=== PATIENT | male | born 1970 | race Caucasian/White ===

== ENCOUNTER 2020-04-04 05:45 | Day surgery (SDC) | payer OTHER ==
[~2020-04-04] VITALS: Ht 175.3 cm; Wt 86.2 kg
--- OUTSIDE RECORDS SUMMARY | ~2020-04-04 | XMS | Encounter Summary ---
Demographics + + + | Address | [address] | | | [place] [address] | + + + | Home Phone | | + + + | Preferred Language | Unknown | + + + | Marital Status | | + + + | Methodist Affiliation | Unknown | + + + | Race | White | + + + | Ethnic Group | Not or | + + + Author + + + | Organization | Unknown | + + + | Address | Unknown | + + + | Phone | Unavailable | + + + Support + + +---------+ + | Name | Relationship | Address | Phone | + + +---------+ + | Marco Bhat | ECON | Unknown | | + + +---------+ + Care Team Providers + +------+ + | Care Garnisher Name | Role | Phone | + +------+ + PCP | Unavailable | + +------+ + Encounter Details +--------+ + + + + | Date | Type | Department | Care Team | Description | +--------+ + + + + | 07/17/ | H&P-Transcr | | Physical, History | Hstry & Physical | | 2001 | ibed | | & | | +--------+ + + + + Social History + +-------+ +--------+------+ | Tobacco Use | Types | Packs/Day | Years | Date | | | | | Used | | + +-------+ +--------+------+ | Never Assessed | | | | | + +-------+ +--------+------+ + + + | Sex Assigned at | Date Recorded | | | | + + + | Not on file | | + + + + + + + | Job Start Date | Occupation | Industry | + + + + | Not on file | Not on file | Not on file | + + + + + + + + | Travel History | Travel Start | Travel End | + + + + + + | No recent travel history available. | + + documented as of this encounter Plan of Treatment Not on filedocumented as of this encounter Visit Diagnoses Not on filedocumented in this encounter"
--- OUTSIDE RECORDS SUMMARY | ~2020-04-04 | XMS | Encounter Summary ---
Demographics + + + | Address | [address] | | | [place] [address] | + + + | Home Phone | | + + + | Preferred Language | Unknown | + + + | Marital Status | | + + + | Orthodoxy Affiliation | Unknown | + + + | Race | White | + + + | Ethnic Group | Not or | + + + Author + + + | Author | [facility] | + + + | Organization | [facility] | + + + | Address | Unknown | + + + | Phone | Unavailable | + + + Support + + +---------+ + | Name | Relationship | Address | Phone | + + +---------+ + | Marco Bhat | ECON | Unknown | | + + +---------+ + Care Team Providers + +------+ + | Care Carpet Cleaner Name | Role | Phone | + +------+ + PCP | Unavailable | + +------+ + Encounter Details +--------+ + + + + | Date | Type | Department | Care Team | Description | +--------+ + + + + | 11/09/ | Office | [facility] | Note, Outpatient | Progress Note | | 2001 | Visit-Trans | MEDICINE | Clinic | | | | cribed | | | | +--------+ + + + + [...] + + documented as of this encounter Progress Notes Interface, Breakfast Manager In - 07/23/2006 1:04 AM PDTCLINIC DATE: 11/09/2001 NEUROSURGERY CLINIC Mr. Bhat returns to the clinic today about 3 months following his L2 compression fracture July 20, 2001. He has essentially no complaints at this time and continues to wear his brace. Lumbar x-ray showed no progressive kyphosis or compression of L2. He still maintains reasonably good alignment and no angulation. At this point, he is doing well, and we will discontinue the brace. We will have him return to our clinic on a p.r.n. basis. Cailin Ramirez M.D. CECILIA / EVA [id number] / [id number] / [id number] / C: 11/11/2001 dlg documented in this encounter Plan of Treatment Not on filedocumented as of this encounter Visit Diagnoses Not on filedocumented in this encounter"
--- OUTSIDE RECORDS SUMMARY | ~2020-04-04 | XMS | Encounter Summary ---
Demographics + + + | Address | [address] | | | [place] [address] | + + + | Home Phone | | + + + | Preferred Language | Unknown | + + + | Marital Status | | + + + | Presybeterian Affiliation | Unknown | + + + [...] | + + +---------+ + | Marco Horn | ECON | Unknown | | + + +---------+ + Care Team Providers + +------+ + | Care Calender Wind Up Helper Name | Role | Phone | + +------+ + PCP | Unavailable | + +------+ + Encounter Details +--------+ + + + + | Date | Type | Department | Care Team | Description | +--------+ + + + + | 09/14/ | Transcribed | | Dictation, Other | Transcribed | | 2001 | | | | | +--------+ + + [...] as of this encounter Progress Notes Interface, Stretch Press Operator In - 08/04/2006 3:07 AM [place] [facility] [place] [address] [place] [address] or September 14, 2001 RE: MARCELLO HORN MR #: [id number] The patient returns now 7 weeks following a fall in which he had a L2 burst fracture. He has been in a TLSO brace since that time. Comparison of his films to his injury date showed no evidence of any increased angulation or compression of L2. He seems to be healing well in situ. His examination shows no evidence of any weakness or numbness in the lower extremities. At this point, he is 7 weeks following L2 burst fracture and doing well on the TLSO brace. We are going to see him back in 1 month and may consider taking the brace off at that time. Sincerely, Cailin Ramirez M.D. CECILIA / EVA [id number] / [id number] / [id number] / [id number] signed by Interface, Stretch Press Operator In at 08/04/2006 3:07 AM PDTdoc umented in this encounter Plan of Treatment Not on filedocumented as of this encounter Visit Diagnoses Not on filedocumented in this encounter"
--- OUTSIDE RECORDS SUMMARY | ~2020-04-04 | XMS | Clinical Summary ---
Demographics + + + | Address | [address] | | | [place] [address] | + + + | Home Phone | | + + + | Preferred Language | Unknown | + + + | Marital Status | | + + + | Restorationist Affiliation | Unknown | + + + [...] Team Providers + +------+ + | Care Computational Mathematician Name | Role | Phone | + +------+ + PCP | Unavailable | + +------+ + Source Comments [place] is fully live on both [facility] Ambulatory and [facility] InPatient.[facility] Allergies Not on File Medications Not on [...] recent travel history available. | + + Last Filed Vital Signs Not on file Plan of Treatment + + + + + | Health Maintenance | Due Date | Last Done | Comments | + + + + + | Influenza (Flu) | | | | | vaccination (#1) | 9 | | | + + + + + | Pneumococcal | Aged Out | | No longer eligible | | vaccination | | | based on patient's | | | | | age to complete this | | | | | topic | + + + + + Results Not on filefrom Last 3 Months"
--- OUTSIDE RECORDS SUMMARY | ~2020-04-04 | XMS | Encounter Summary ---
Demographics + + + | Address | [address] | | | [place] [address] | + + + | Home Phone | | + + + | Preferred Language | Unknown | + + + | Marital Status | | + + + | Baptist Affiliation | Unknown | + + + | Race | White | + + + | Ethnic Group | Not or | + + + Author + + + | Author | [facility] | + + + | Organization | [facility] | + + + | Address | Unknown | + + + | Phone | Unavailable | + + + Support + + +---------+ + | Name | Relationship | Address | Phone | + + +---------+ + | Marco Bhat | ECON | Unknown | | + + +---------+ + Care Team Providers + +------+ + | Care Winding Machine Operator Name | Role | Phone | + +------+ + PCP | Unavailable | + +------+ + Encounter Details +--------+ + + + + | Date | Type | Department | Care Team | Description | +--------+ + + + + | 08/05/ | Results | Neurosurgery 3250 | Cailin Ramirez MD | | | 2000 | Only | [facility] | [address] | | | | | [address] Mailcode:OP[address] | [place], [place] | | | | | [place] | [address] | | | | | [place], [place] | [phone] | | | | | [address] | | | | | | [phone] | | | +--------+ + + + [...] + + | SPINE | Radiologist 1: SHIRA | | | | | THORACOLUMB | Jimenez JORGENSEN-Radiologist | | | | | AR 2 VIEWS | 2: JOSLYN SILVA | | | | | | JimenezAP AND LATERAL VIEWS | | | | | | OF THE LUMBAR SPINE: | | | | | | 09/14/2001 | | | | | | Dictated: 09/15/2001 | | | | | | COMPARISON: | | | | | | 08/05/2001. FINDINGS: | | | | | | This study is | | | | | | performed in [employer]. | | | | | | Again [...] | | + +---------+ + + | [facility] DEPARTMENT OF | | | | [...] | | | AR 2 VIEWS | M.DPramodTHORACOLUMBAR SPINE | | | | | | [...] | | + +---------+ + + | [facility] DEPARTMENT OF | | | | | RADIOLOGY | | | | + +---------+ + + documented in this encounter Visit Diagnoses Not on filedocumented in this encounter"
--- OUTSIDE RECORDS SUMMARY | ~2020-04-04 | XMS | Encounter Summary ---
Demographics + + + | Address | [address] | | | [place] [address] | + + + | Home Phone | | + + + | Preferred Language | Unknown | + + + | Marital Status | | + + + | Adventist Affiliation | Unknown | + + + | Race | White | + + + | Ethnic Group | Not or | + + + Author + + + | Author | [facility] | + + + | Organization | [facility] | + + + | Address | Unknown | + + + | Phone | Unavailable | + + + Support + + +---------+ + | Name | Relationship | Address | Phone | + + +---------+ + | Marco Bhat | ECON | Unknown | | + + +---------+ + Care Team Providers + +------+ + | Care Network Programmer Name | Role | Phone | + +------+ + PCP | Unavailable | + +------+ + Encounter Details +--------+ + + + + | Date | Type | Department | Care Team | Description | +--------+ + + + + | 11/09/ | Results | Neurosurgery 3250 | Cailin Ramirez MD | | | 2001 | Only | [facility] | [address] | | | | | [address] Mailcode:OP[address] | [place], [place] | | | | | [place] | [address] | | | | | [place], [place] | [phone] | | | | | [address] | | | | | | [phone] | | | +--------+ + + + [...] + | SPINE, LUMBOSACRAL, | Routin | 11/09/2001 | | Results for this | | 2 VIEWS | e | 2:52 PM | | procedure are in the | | | | PST | | results section. | + +--------+ + + + documented in this encounter Results SPINE, LUMBOSACRAL, 2 VIEWS (11/09/2001 2:52 PM PST) + + + + + + | Component | Value | Ref Range | Performed | Pathologist | | | | | At | Signature | + + + + + + | SPINE, | Radiologist 1: | | | | | LUMBOSACRAL | ENZO GIRALOD, | | | | | , 2 VIEWS | M.D.-Radiologist 2: | | | | | | ENZO GIRALDO, | | | | | | M.D.AP AND LATERAL | | | | | | LUMBAR SPINE: | | | | | | 11/09/2001 Dictated | | | | | | 11/09/2001 COMPARISON: | | | | | | 09/14/2001. FINDINGS: | | | | | | Examination is | | | | | | performed upright in a | | | | | | brace. As | | | | | | notedpreviously there is | | | | | | severely comminuted | | | | | | compression deformity of | | | | | | L1with an approximately | | | | | | 60% loss of anterior | | | | | | vertebral body | | | | | | height.There is | | | | | | increased sclerosis of | | | | | | L1 indicating interval | | | | | | radiographichealing and | | | | | | there has been no | | | | | | further loss of height. | | | | | | Minimalretrolisthesis | | | | | | of L1 and L2 is | | | | | | unchanged from the prior | | | | | | radiograph.The | | | | | | remaining alignment of | | | | | | the lumbar spine is | | | | | | anatomic. | | | | | | Remainingvertebral | | | | | | body heights and | | | | | | intervertebral disc | | | | | | spaces are | | | | | | maintained.The pedicles | | | | | | and neural arches are | | | | | | intact. AP alignment | | | | | | is anatomic. | | | | | | IMPRESSION: Healing | | | | | | anterior wedge | | | | | | compression deformity of | | | | | | L1, minimal | | | | | | L1-2retrolisthesis and | | | | | | no interval change from | | | | | | the prior radiograph. | | | | | | END OF IMPRESSION: | | | | + + + + + + + + | Specimen | + + | | + + + +---------+ + + | Performing | Address | City[facility] | Phone Number | | Organization | | | | + +---------+ + + | [facility] DEPARTMENT | | | | | RADIOLOGY | | | | + +---------+ + + documented in this encounter Visit Diagnoses Not on filedocumented in this encounter"
--- OUTSIDE RECORDS SUMMARY | ~2020-04-04 | XMS | Encounter Summary ---
Demographics + + + | Address | [address] | | | [place] [address] | + + + | Home Phone | | + + + | Preferred Language | Unknown | + + + | Marital Status | | + + + | Yazidism Affiliation | Unknown | + + + | Race | White | + + + | Ethnic Group | Not or | + + + Author + + + | Author | [facility] | + + + | Organization | [facility] | + + + | Address | Unknown | + + + | Phone | Unavailable | + + + Support + + +---------+ + | Name | Relationship | Address | Phone | + + +---------+ + | Marco Bhat | ECON | Unknown | | + + +---------+ + Care Team Providers + +------+ + | Care Production Trainer Name | Role | Phone | + +------+ + PCP | Unavailable | + +------+ + Encounter Details +--------+ + + + + | Date | Type | Department | Care Team | Description | +--------+ + + + + | 08/05/ | Office | [facility] | Note, Outpatient | Progress Note | | 2000 | Visit-Trans | MEDICINE | Clinic | [...] as of this encounter Progress Notes Interface, Grease Refiner Operator In - 08/09/2006 1:12 AM PDTCLINIC DATE: 08/05/2001 SUBJECTIVE: Mr. Bhat returns today, now approximately 2 weeks following a fall with secondary L2 burst compression fracture. He has been in a TLSO since that time and radiography today shows good alignment of the vertebra without evidence of any angulation at the L2 level. He has improved pain and is taking only ibuprofen 800 mg t.i.d. at present. OBJECTIVE: Examination today remains unremarkable. PLAN: We will see him back in 1 month for followup. I did spend considerable time today filling out his disability paperwork. Cailin Ramirez M.D. CECILIA / EVA [id number] / [id number] / [id number] / [id number] signed by Interface, Grease Refiner Operator In at 08/09/2006 1:12 AM PDTdocume ntanisa in this encounter Plan of Treatment Not on filedocumented as of this encounter Visit Diagnoses Not on filedocumented in this encounter"
--- OUTSIDE RECORDS SUMMARY | ~2020-04-04 | XMS | Encounter Summary ---
Demographics + + + | Address | [address] | | | [place] [address] | + + + | Home Phone | | + + + | Preferred Language | Unknown | + + + | Marital Status | | + + + | Zoroastrian Affiliation | Unknown | + + + | Race | White | + + + | Ethnic Group | Not or | + + + Author + + + | Author | [facility] | + + + | Organization | [facility] | + + + | Address | Unknown | + + + | Phone | Unavailable | + + + Support + + +---------+ + | Name | Relationship | Address | Phone | + + +---------+ + | Marco Bhat | ECON | Unknown | | + + +---------+ + Care Team Providers + +------+ + | Care Airplane Pilot Supervisor Name | Role | Phone | + [...]
--- OUTSIDE RECORDS SUMMARY | ~2020-04-04 | XMS | Encounter Summary ---
Demographics + + + | Address | [address] | | | [place] [address] | + + + | Home Phone | | + + + | Preferred Language | Unknown | + + + | Marital Status | | + + + | Advent Affiliation | Unknown | + + + [...] Team Providers + +------+ + | Care Machine Assembler For Puller Over Name | Role | Phone | + [...] | | | | | [place], | | | | | | [place] [address] | | | | | | [phone] | | | | | | | [...] | | + +---------+ + + | [facility] DEPARTMENT OF | | | | [...] the | | | | | | [id number] | | | | | | distance [...] | | + +---------+ + + | [facility] DEPARTMENT OF | | | | | RADIOLOGY | | | | + +---------+ + + documented in this encounter Visit Diagnoses Not on filedocumented in this encounter"
[~2020-04-04 05:45] MED LIST: GABAPENTIN300 MG PO; OMEPRAZOLE20 MG PO; OXYCODONE HCL5 MG PO
--- NOTE | 2020-04-04 08:06 | NUR ---
04/04/20 0806 Anny Lundberg 5683-PATIENT ARRIVED TO PACU ON 6L MASK AWAKE BUT DROWSY. PATIENT MOVING LEFT LEG ENCOURAGED TO KEEP LEG STILL. PATIENT ABLE TO WIGGLE TOES, ELEVATED ON PILLOW GOOD CAP REFILL. SR. PAIN 01/09 JOSE ALFREDO ALBRECHT ADMINISTERED FENTANYL IVP. ABX INFUSING.
[2020-04-04] MEDS ORDERED: LEVAQUIN750 MG PO (08:18)
[2020-04-04] MEDS ORDERED: HYDROCODON-ACE1 EA11 PO (08:18)
--- NOTE | 2020-04-04 10:16 | NUR ---
LE 0955: PATIENT IS UP TO THE BATHROOM WITH WALKER NON-WEIGHT BEARING TO LEFT FOOT AND MY STANDBY. PATIENT AMBULATES WELL, VOIDS AND REQUESTS DISCHARGE HOME. DISCHARGE INSTRUCTIONS ARE GIVEN AND PATIENT VERBALIZES UNDERSTANDING. PATIENT DRESSES SELF AND PUSHES CALL LIGHT TO SIGNIFY BEING READY FOR DISCHARGE. PATIENT TRANSFERS HIMSELF TO WHEELCHAIR AND THEN TO PERSONAL VEHICLE AND TOLERATES THAT WELL.
--- NOTE | 2020-04-05 07:36 | [place] ---
[facility] [address] [place], [place] [address] Signed DATE OF OPERATION: 04/04/2020 SURGEON: Sonya Valerio MD PREOPERATIVE DIAGNOSIS: Infected hardware, left ankle. POSTOPERATIVE DIAGNOSIS: Infected hardware, left ankle. PROCEDURE PERFORMED: Removal of hardware, left ankle with an irrigation and debridement of skin, subcutaneous tissue, and bone, left distal tibia. CROSS CUT SAW OPERATOR: None. ANESTHESIA: General. BLOOD LOSS: Minimal. TOURNIQUET TIME: 35 minutes, multiple deep tissue cultures were sent to the lab. BRIEF HISTORY: Marcello is a 49-year-old gentleman, who suffered a distal tibial fracture that we fixed in June. He went onto uneventful although delayed healing. The leg was healed and he was released from care; however, he returned to his PCP with a complaint of redness around the midportion of the incision. He contacted me and I saw him immediately in the clinic yesterday. Because he did have pointing and redness in the region of the midportion incision, we discussed removal of the plate since his fracture was healed and he elected to proceed. DESCRIPTION OF PROCEDURE: Once consent was obtained, he was taken to the operating room after adequate anesthesia, he was placed on the operating table, all downside pressure points were well padded. The left leg was prepped and draped in a standard sterile fashion up to a well-padded proximal thigh tourniquet. The leg was exsanguinated using Esmarch bandage. Tourniquet Electronically Signed By: SONYA VALERIO MD 04/05/20 0736 PATIENT NAME: MARCELLO HORN OPERATIVE REPORT DATE OF : 68 REPORT #: [id number] PHYSICIAN: SONYA VAELRIO MD PCP: KAREN MULLINS PA-C REPORT IS CONFIDENTIAL AND NOT TO BE RELEASED WITHOUT AUTHORIZATION [facility] [address], [place] [address] Signed was inflated to 250 mmHg. The prior pointing had burst and we took deep culture swabs from this. The incision was then opened longitudinally. A football ellipse was then taken around the abscess area. The skin was undermined deep and the plate was cleared of soft tissue. There was extensive infection extending up and down the plate and into a small pocket posteriorly. This had the deep smell of dirty feet consistent with Pseudomonas. We cleaned all of this necrotic tissue out. The screws were then removed from the plate, all 10 screws were removed successfully and the plate was weaved off the bone and passed off the table. The bone was then scraped with a curette and [place] elevator. All necrotic tissue was then sharply debrided and irrigated with 3 L of antibiotic irrigation. The screw holes were curetted. The skin was undermined anteriorly and posteriorly to allow easy closure. Once this was accomplished, the skin was closed using 0 PDS and 2-0 nylon in interrupted fashion. Wound was then dressed with a ADAM wound VAC dressing and Marko wrap. He was awakened and taken to the recovery room in satisfactory condition. All sponge, needle, and instrument counts were correct. Sonya Valerio MD BA/MODL /[id number] Copies: ~ Electronically Signed By: SONYA VALERIO MD 04/05/20 0736 PATIENT NAME: MARCELLO HORN OPERATIVE REPORT DATE OF : 68 REPORT #: [id number] PHYSICIAN: SONYA VALERIO MD PCP: KAREN MULLINS PA-C REPORT IS CONFIDENTIAL AND NOT TO BE RELEASED WITHOUT AUTHORIZATION
== END 2020-04-04 10:00 | disposition home or self-care (01) ==
LOC: DS 05:45 → DSVR 05:45 → EDSTATUS 06:45 → DSVR 06:45 → DS 10:00 → DSVR 10:00
PROVIDERS: Specialist
PROC: 0SPG04Z Removal of Internal Fixation Device from Left Ankle Joint, Open Approach (ICD-10-PCS; principal; 2020-04-04 06:45)
DX: T84.623A Infection and inflammatory reaction due to internal fixation device of left tibia, initial encounter (principal); K21.9 Gastro-esophageal reflux disease without esophagitis; F17.210 Nicotine dependence, cigarettes, uncomplicated; Z79.899 Other long term (current) drug therapy; Y79.3 Surgical instruments, materials and orthopedic devices (including sutures) associated with adverse incidents
CPT/HCPCS: 01392; 64445; 64447; 76942; J0690; J1100; J1885; J1956; J2001; J2250; J2405; J2704; J2795; J3010; J7121

== ENCOUNTER 2020-07-17 10:22 | Emergency (ER) | payer OTHER ==
[~2020-07-17] VITALS: Ht 175.3 cm; Wt 81.7 kg
--- OUTSIDE RECORDS SUMMARY | ~2020-07-17 | XMS | Encounter Summary ---
Demographics + + + | Address | [address] | | | [place] [address] | + + + | Home Phone | | + + + | Preferred Language | Unknown | + + + | Marital Status | | + + + | Druze Affiliation | Unknown | + + + | Race | White | + + + | Ethnic Group | Not or | + + + Author + + + | Author | [facility] | + + + | Organization | [facility] | + + + | Address | Unknown | + + + | Phone | Unavailable | + + + Support + + +---------+ + | Name | Relationship | Address | Phone | + + +---------+ + | Marco Bhat | ECON | Unknown | | + + +---------+ + Care Team Providers + +------+ + | Care Printed Circuit Designer Name | Role | Phone | + +------+ + PCP | Unavailable | + +------+ + Encounter Details +--------+ + + + + | Date | Type | Department | Care Team | Description | +--------+ + + + + | 08/05/ | Results | Neurosurgery 3250 | Cailin Ramirez MD | | | 2000 | Only | [facility] | [address] | | | | | [address]ures[place] Mailcode:[id number] | [place], [place] | | | | | [place] | [address] | | | | | [place], [place] | [phone] | | | | | [address] | | | | | | [phone] | | | +--------+ + + + [...] on file | | + + + documented as of this encounter Plan of Treatment Not on filedocumented as of this encounter Procedures + +--------+ + + + | Procedure Name | Priori | Date/Time | Associated Diagnosis | Comments | | | ty | | | | + +--------+ + + + | X-RAY SPINE | Routin | 09/14/2001 | | Results for this | | THORACOLUMBAR 2 | e | 1:31 PM | | procedure are in the | | VIEWS | | PST | | results section. | + +--------+ + + + | X-RAY SPINE | Routin | 08/05/2001 | | Results for this | | THORACOLUMBAR 2 | e | 12:48 PM | | procedure are in the | | VIEWS | | PDT | | results section. | + +--------+ + + + documented in this encounter Results SPINE THORACOLUMBAR 2 VIEWS (09/14/2001 1:31 PM PST) + + + + + + | Component | Value | Ref Range | Performed | Pathologist | | | | | At | Signature | + + + + + + | SPINE | Radiologist 1: SHIRA, | | | | | THORACOLUMB | Jimenez JORGENSEN-Radiologist | | | | | AR 2 VIEWS | 2: OJSLYN SILVA, | | | | | | M.D.AP AND LATERAL VIEWS | | | | | | OF THE LUMBAR SPINE: | | | | | | 09/14/2001 | | | | | | Dictated: 09/15/2001 | | | | | | COMPARISON: | | | | | | 08/05/2001. FINDINGS: | | | | | | This study is | | | | | | performed in [employer]. | | | | | | Again seen is | | | | | | thepreviously reported | | | | | | L1 vertebral bondy | | | | | | comminuted impaction | | | | | | fracture.There is no | | | | | | change to the | | | | | | approximately 60% | | | | | | anterior body height | | | | | | loss.There is minimal | | | | | | retrolisthesis of L1 on | | | | | | L2, which is also | | | | | | unchanged.The remainder | | | | | | of the lumbosacral spine | | | | | | is anatomically | | | | | | aligned. Noother | | | | | | fracture, is seen. The | | | | | | disc spaces and a | | | | | | vertebral body | | | | | | heightselsewhere are | | | | | | well maintained. | | | | | | IMPRESSION: Unchanged | | | | | | compression fracture of | | | | | | L1 with minimal L1-2 | | | | | | retrolisthesis. END | | | | | | OF IMPRESSION: | | | | + + + + + + + + | Specimen | + + | | + + + +---------+ + + | Performing | Address | City/State/Zipcode | Phone Number | | Organization | | | | + +---------+ + + | [facility] DEPARTMENT OF | | | | | RADIOLOGY | | | | + +---------+ + + SPINE THORACOLUMBAR 2 VIEWS (08/05/2001 12:48 PM PDT) + + + + + + | Component | Value | Ref Range | Performed | Pathologist | | | | | At | Signature | + + + + + + | SPINE | Radiologist 1: JOSEPH, | | | | | THORACOLUMB | Leonila SONG, | | | | | AR 2 VIEWS | M.D.THORACOLUMBAR SPINE | | | | | | - AP, LATERAL (OUT OF | | | | | | BRACE): 08/05/2001 | | | | | | Dictated 08/07/2001 | | | | | | COMPARISON: Upright in | | | | | | brace study of | | | | | | 07/20/2001. FINDINGS: | | | | | | The brace has been | | | | | | removed. There is | | | | | | increased lumbarlordosis | | | | | | compared to the prior | | | | | | upright film in brace. | | | | | | There has beenslight | | | | | | further collapse and | | | | | | decreased height of the | | | | | | anterior | | | | | | columncompression | | | | | | fracture of L1. There | | | | | | is increased sclerosis | | | | | | consistentwith bone | | | | | | healing. No displaced | | | | | | fragments are | | | | | | identified. There | | | | | | isvery minimal | | | | | | retrolisthesis at L1-2 | | | | | | of only a few | | | | | | millimeters which | | | | | | islikely not | | | | | | significantly changed | | | | | | allowing for the slight | | | | | | difference inprojection | | | | | | and amount of lumbar | | | | | | lordosis since | | | | | | 07/20/2001. IMPRESSION: | | | | | | Slight further collapse | | | | | | and decreased height of | | | | | | the anterior | | | | | | columncompression | | | | | | fracture of L1 with | | | | | | increased bony | | | | | | sclerosis. END OF | | | | | | IMPRESSION: | | | | + + + + + + + + | Specimen | + + | | + + + +---------+ + + | Performing | Address | City/State/Zipcode | Phone Number | | Organization | | | | + +---------+ + + | [facility] DEPARTMENT OF | | | | | RADIOLOGY | | | | + +---------+ + + documented in this encounter Visit Diagnoses Not on filedocumented in this encounter"
--- OUTSIDE RECORDS SUMMARY | ~2020-07-17 | XMS | Clinical Summary ---
Demographics + + + | Address | [address] | | | [place] [address] | + + + | Home Phone | | + + + | Preferred Language | Unknown | + + + | Marital Status | | + + + | Voodoo Affiliation | Unknown | + + + [...] Team Providers + +------+ + | Care Ornamental Iron Worker Name | Role | Phone | + +------+ + PCP | Unavailable | + +------+ + Source Comments [place] is fully live on both [facility] and [facility] Allergies Not on File Medications Not on file Active Problems Not on file Social History + +-------+ +--------+------+ | Tobacco [...] on file | | + + + Last Filed Vital Signs Not on file Plan of Treatment + + +-------+ + | Health Maintenance | Due Date | Last | Comments | | | | Done | | + + +-------+ + | Influenza (Flu) | | | | | vaccination (#1) | 0 | | | + + +-------+ + | Pneumococcal | Aged Out | | No longer eligible based on patient's age | | vaccination | | | to complete this topic | + + +-------+ + Results Not on filefrom Last 3 Months"
--- OUTSIDE RECORDS SUMMARY | ~2020-07-17 | XMS | Encounter Summary ---
Demographics + + + | Address | [address] | | | [place] [address] | + + + | Home Phone | | + + + | Preferred Language | Unknown | + + + | Marital Status | | + + + | Protestant Affiliation | Unknown | + + + | Race | White | + + + | Ethnic Group | Not or | + + + Author + + + | Author | [facility] | + + + | Organization | [facility] | + + + | Address | Unknown | + + + | Phone | Unavailable | + + + Support + + +---------+ + | Name | Relationship | Address | Phone | + + +---------+ + | Marco Bhat | ECON | Unknown | | + + +---------+ + Care Team Providers + +------+ + | Care Dirt Bike Racer Name | Role | Phone | + [...] as of this encounter Progress Notes Interface, Environmental Permitting Specialist In - 07/23/2006 1:04 AM PDTCLINIC DATE: [...] basis. Cailin Ramirez M.D. CECILIA / EVA [id number] / [id number] / [id number] / C: 11/11/2001 dlg documented in this encounter Plan of Treatment Not on filedocumented as of this encounter Visit Diagnoses Not on filedocumented in this encounter"
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
--- OUTSIDE RECORDS SUMMARY | ~2020-07-17 | XMS | Encounter Summary ---
Demographics + + + | Address | [address] | | | [place] [address] | + + + | Home Phone | | + + + | Preferred Language | Unknown | + + + | Marital Status | | + + + | Adventist Affiliation | Unknown | + + + [...] Team Providers + +------+ + | Care Glass Wool Blanket Machine Feeder Name | Role | Phone | + +------+ + PCP | Unavailable | + +------+ + Encounter Details +--------+ + + + + | Date | Type | Department | Care Team | Description | +--------+ + + + + | 07/20/ | Results | | Mono Bergman MD | | | 2000 | Only | | [address] | | | | | | [place], | | | | | | [place] [address] | | | | | | [phone] | | | | | | | | +--------+ + [...] | + +--------+ + + + | SPINE, LUMBOSACRAL, | Routin | 07/20/2001 | | Results for this | | 2 VIEWS | e | 3:00 PM | | procedure are in the | | | | PDT | | results section. | + +--------+ + + + | SPINE, LUMBOSACRAL, | Urgent | 07/20/2001 | | Results for this | | 2 VIEWS | | 1:15 PM | | procedure are in the | | | | PDT | | results section. | + +--------+ + + + documented in this encounter Results SPINE, LUMBOSACRAL, 2 VIEWS (07/20/2001 3:00 PM PDT) + + + + + + | Component | Value | Ref Range | Performed | Pathologist | | | | | At | Signature | + + + + + + | SPINE, | Radiologist 1: JOSEPH, | | | | | LUMBOSACRAL | Leonila SONG, | | | | | , 2 VIEWS | M.D.-Radiologist 2: | | | | | | Leonila RUIZ, | | | | | | M.D.LUMBAR SPINE UPRIGHT | | | | | | AP AND LATERAL IN TLSO: | | | | | | 07/20/2001 Dictated | | | | | | 07/20/2001 | | | | | | COMPARISON: Comparison | | | | | | is made with prior | | | | | | study of supine | | | | | | lumbarspine out of brace | | | | | | 07/20/2001. FINDINGS: | | | | | | Again noted is | | | | | | compression fracture of | | | | | | L1 withapproximately 30 | | | | | | to 40% loss in height of | | | | | | the anterior and | | | | | | midportions of the | | | | | | vertebral body. I see | | | | | | no compression of the | | | | | | dorsalcortex nor | | | | | | evidence for | | | | | | retropulsion. On the | | | | | | current upright film, | | | | | | there has been no | | | | | | further loss in heightof | | | | | | the compression | | | | | | fracture. There is | | | | | | slight narrowing of | | | | | | theposterior disc space | | | | | | with 1 to 2 mm of | | | | | | anterolisthesis T12 upon | | | | | | L1.This was not evident | | | | | | on the recumbent film. | | | | | | There is no | | | | | | significantkyphotic | | | | | | deformity. Current | | | | | | film shows no convincing | | | | | | widening of | | | | | | theinterpedicular | | | | | | distances. IMPRESSION: | | | | | | 1. No further loss in | | | | | | height of the L1 | | | | | | compression versus | | | | | | burstfracture of L1 in | | | | | | the upright position. | | | | | | I see no | | | | | | retropulsedfragments. 2. | | | | | | There is minimal (1-2 | | | | | | mm) anterolisthesis T12 | | | | | | upon L1 which wasnot | | | | | | evident on the recumbent | | | | | | exam. END OF | | | | | [...] | | | + +---------+ + + SPINE, LUMBOSACRAL, 2 VIEWS (07/20/2001 1:15 PM PDT) + + + + + + | Component | Value | Ref Range | Performed | Pathologist | | | | | At | Signature | + + + + + + | SPINE, | Radiologist 1: JOSEPH, | | | | | LUMBOSACRAL | Leonila SONG, | | | | | , 2 VIEWS | M.D.-Radiologist 2: | | | | | | Leonila RUIZ, | | | | | | M.D.AP AND LATERAL OF | | | | | | LUMBOSACRAL SPINE: | | | | | | 07/20/2001 Dictated | | | | | | 07/20/2001 COMPARISON: | | | | | | None. FINDINGS: There | | | | | | is approximately 30% | | | | | | height loss of the L1 | | | | | | vertebralbody with | | | | | | associated cortical | | | | | | irregularity and | | | | | | disruption of | | | | | | thesuperior and inferior | | | | | | L1 vertebral body end | | | | | | plates. On the | | | | | | APprojection, there is a | | | | | | suggestion of slight | | | | | | widening of the | | | | | | [id number] | | | | | | distance when comparing | | | | | | to the superior and | | | | | | inferiorvertebral | | | | | | bodies. On lateral | | | | | | projection, however, | | | | | | there is noretropulsion | | | | | | of the L1 posterior | | | | | | vertebral body cortex in | | | | | | relation tothe superior | | | | | | and inferior vertebral | | | | | | bodies. The lumbar | | | | | | vertebral body heights | | | | | | are otherwise maintained | | | | | | and theintervertebral | | | | | | disc spaces are | | | | | | maintained. IMPRESSION: | | | | | | Acute anterior column L1 | | | | | | compression fracture | | | | | | with the suggestionof | | | | | | burst component as | | | | | | outlined above. END | | | | | | OF IMPRESSION: | | | | + + + + + + + + | Specimen | + + | | + + + +---------+ + + | Performing | Address | City/State/Zipcode | Phone Number | | Organization | | | | + +---------+ + + | [facility] DEPARTMENT OF | | | | | RADIOLOGY | | | | + +---------+ + + documented in this encounter Visit Diagnoses Not on filedocumented in this encounter"
--- OUTSIDE RECORDS SUMMARY | ~2020-07-17 | XMS | Encounter Summary ---
Demographics + + + | Address | [address] | | | [place] [address] | + + + | Home Phone | | + + + | Preferred Language | Unknown | + + + | Marital Status | | + + + | Mormonism Affiliation | Unknown | + + + | Race | White | + + + | Ethnic Group | Not or | + + + Author + + + | Author | [facility] | + + + | Organization | [facility] | + + + | Address | Unknown | + + + | Phone | Unavailable | + + + Support + + +---------+ + | Name | Relationship | Address | Phone | + + +---------+ + | Marco Bhat | ECON | Unknown | | + + +---------+ + Care Team Providers + +------+ + | Care Manager Cost Name | Role | Phone | + +------+ + PCP | Unavailable | + +------+ + Encounter Details +--------+ + + + + | Date | Type | Department | Care Team | Description | +--------+ + + + + | 11/09/ | Results | Neurosurgery 3250 | Cailin Ramirez MD | | | 2001 | Only | [facility] | [address] | | | | | [address]ures[place] Mailcode:OP14B | [place], [place] | | | | | [facility] | [address] | | | | | [place], [place] | [phone] | | | | | [address] | | | | | | [phone] | | | +--------+ + + + [...] | | | | LUMBOSACRAL | ENZO GIRALDO, | | | | | , 2 [...] | | + +---------+ + + | [facility] DEPARTMENT OF | | | | | RADIOLOGY | | | | + +---------+ + + documented in this encounter Visit Diagnoses Not on filedocumented in this encounter"
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
--- OUTSIDE RECORDS SUMMARY | ~2020-07-17 | XMS | Encounter Summary ---
Demographics + + + | Address | [address] | | | [place] [address] | + + + | Home Phone | | + + + | Preferred Language | Unknown | + + + | Marital Status | | + + + | Uatsdin Affiliation | Unknown | + + + [...] Team Providers + +------+ + | Care Author Name | Role | Phone | + [...] as of this encounter Progress Notes Interface, Inorganic Chemistry Teacher In - 08/04/2006 3:[address] [address] or September 14, 2001 RE: MARCELLO HORN MR #: [id number] The patient returns now 7 weeks following [...] Sincerely, Cailin Ramirez M.D. CECILIA / EVA [id number] / [id number] / [id number] / [id number] signed by Interface, Inorganic Chemistry Teacher In at 08/04/2006 3:07 AM PDTdoc umented in this encounter Plan of Treatment Not on filedocumented as of this encounter Visit Diagnoses Not on filedocumented in this encounter"
--- OUTSIDE RECORDS SUMMARY | ~2020-07-17 | XMS | Encounter Summary ---
Demographics + + + | Address | [address] | | | [place] [address] | + + + | Home Phone | | + + + | Preferred Language | Unknown | + + + | Marital Status | | + + + | Baptism Affiliation | Unknown | + + + | Race | White | + + + | Ethnic Group | Not or | + + + Author + + + | Author | [facility] | + + + | Organization | [facility] | + + + | Address | Unknown | + + + | Phone | Unavailable | + + + Support + + +---------+ + | Name | Relationship | Address | Phone | + + +---------+ + | Marco Bhat | ECON | Unknown | | + + +---------+ + Care Team Providers + +------+ + | Care Training And Documentation Specialist Name | Role | Phone | + [...] as of this encounter Progress Notes Interface, Shelter Director In - 08/09/2006 1:12 AM PDTCLINIC DATE: [...] paperwork. Cailin Ramirez M.D. CECILIA / EVA [id number] / [id number] / [id number] / [id number] signed by Interface, Shelter Director In at 08/09/2006 1:12 AM PDTdocume nted in this encounter Plan of Treatment Not on filedocumented as of this encounter Visit Diagnoses Not on filedocumented in this encounter"
[~2020-07-17 10:22] MED LIST changes: +HYDROCODON-ACE1 EA11 PO; +LEVAQUIN750 MG PO
[2020-07-17] MEDS ORDERED: NORCO 7.5-3251 EACH PO (12:13)
[2020-07-17] MEDS ORDERED: KEFLEX500 MG PO (12:13)
== END 2020-07-17 12:43 | disposition home or self-care (01) ==
LOC: ED 10:22
DX: S62.630A Displaced fracture of distal phalanx of right index finger, initial encounter for closed fracture (principal); S61.310A Laceration without foreign body of right index finger with damage to nail, initial encounter; S61.212A Laceration without foreign body of right middle finger without damage to nail, initial encounter; W23.0XXA Caught, crushed, jammed, or pinched between moving objects, initial encounter; Y99.0 Civilian activity done for income or pay; Z87.891 Personal history of nicotine dependence; Z79.899 Other long term (current) drug therapy
CPT/HCPCS: 11760; 12004; 73130; 90471; 90715; 99283-25; A9270

== ENCOUNTER 2024-03-30 10:19 | Emergency (ER) | payer OTHER ==
[~2024-03-30] VITALS: Ht 175.3 cm; Wt 86.4 kg
[~2024-03-30 10:19] MED LIST changes: +KEFLEX500 MG PO; +NORCO 7.5-3251 EACH PO
[2024-03-30] MEDS ORDERED: AMOX TR-K CLV1 EAC1 PO (10:34)
[2024-03-30 12:17] LABS: BASOPHILS 0.6 % (0-2); EOSINOPHILS 1.9 % (0-6); HEMATOCRIT 48.9 % (35.0-50.0); LYMPHOCYTES 20.3 % (24-44); MCH 30.4 (27-36); MCHC 34.8 g/dl (30-36); MCV 87.6 fl (81-99); MONOCYTES 6.6 % (0-12); NEUTROPHILS 70.6 % (39-80); PLATELET COUNT 235 K/uL (140-440); RBC 5.59 M/ul (4.3-5.7); RDW 13.3 (10.5-15.0)
[2024-03-30 12:33] LABS: ALBUMIN 3.9 g/dL (3.4-5.0); ALBUMIN/GLOBULIN RATIO 1.15 (1.1-2.4); BILIRUBIN, TOTAL 0.4 ng/dL (0.2-1.0); BUN/CREATININE RATIO 19.31 (6.0-28.6); CREATININE, SERUM 0.88 mg/dL (0.70-1.30); PROTEIN, TOTAL 7.3 g/dL (6.4-8.2)
[2024-03-30 14:10] VITALS: BP 134/89
== END 2024-03-30 14:11 | disposition home or self-care (01) ==
LOC: ED 10:19
PROVIDERS: Emergency Medicine
DX: R22.1 Localized swelling, mass and lump, neck (principal); Z87.891 Personal history of nicotine dependence; Z79.899 Other long term (current) drug therapy
CPT/HCPCS: 36415; 70491; 80053; 85025; 99284-25

== ENCOUNTER 2024-04-12 09:02 | Day surgery (SDC) | payer OTHER ==
[2024-04-11 11:20] VITALS: BP 127/77
[~2024-04-12] VITALS: Ht 175.3 cm; Wt 86.4 kg
--- NOTE | ~2024-04-12 | OR ---
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 PROCEDURE: Direct laryngoscopy, biopsy of left pharyngeal tumor. ANESTHESIA: General endotracheal; SCRAP KETTLE TENDER, [place]. PREOPERATIVE HISTORY: Marcello is a 53-year-old male with a left neck mass, left pharyngeal tumor suspicious for neoplasia. He was taken to the operating room for the above-mentioned procedures. OPERATIVE PROCEDURE AND FINDINGS: After informed consent, the patient was taken to the operating room, placed in supine position where general orotracheal anesthesia was induced. The patient and procedure were verified. The patient was repositioned. Palpation of the pharynx showed a hard mass in the left pharynx about the left inferior tonsillar pole extending down the lateral pharyngeal wall about 2-3 cm, appeared to be almost exclusively lateral pharyngeal wall near the base of tongue, possibly involving the glossopharyngeal fold. The tumor was firm, not real friable. Anterior commissure laryngoscope was then used to visualize the hypopharynx larynx. All of the anatomy was within normal limits except for the tumor site was of fairly submucosal tumor indurated with some friability with rubbing with the scope tip. Several biopsies with the cup forceps were taken and sent to pathology in formalin. Minimal bleeding stopped afterwards. Pharynx was suctioned with clear blood and secretions. The patient was then awakened, extubated, transported to recovery room in good condition. No complications. BLOOD LOSS: Minimal. SPECIMEN: To pathology. PATIENT NAME: MARCELLO HORN OPERATIVE REPORT DATE OF : 68 REPORT #: [id number] PHYSICIAN: CHIVO TREVINO MD PCP: KAREN MULLINS PA-C REPORT IS CONFIDENTIAL AND NOT TO BE RELEASED WITHOUT AUTHORIZATION [address] [place], [place] [address] Draft DRAINS: None. Chivo Trevino MD GC/PHILLIP /[id number] Copies: ~ PATIENT NAME: MARCELLO HORN OPERATIVE REPORT DATE OF : 68 REPORT #: [id number] PHYSICIAN: CHIVO TREVINO MD PCP: KAREN MULLINS PA-C REPORT IS CONFIDENTIAL AND NOT TO BE RELEASED WITHOUT AUTHORIZATION
[~2024-04-12 09:02] MED LIST changes: +AMOX TR-K CLV1 EAC1 PO; +IBLOOD GLUCOSE TEST STRIP 1 EA TEST VI PRN; +LACTATED RINGER'S 1,000 ML IV SCH; +LIDOCAINE HCL 1% 5 ML SDV INJ ONE
[2024-04-12 09:26] VITALS: BP 123/73
[2024-04-12] MEDS ORDERED: fentaNYL citrate 100 MCG/2 ML VIAL ONE (10:45)
[2024-04-12] MEDS ORDERED: DEXAMETHASONE SOD PHOS 4 MG/ML VIAL ONE (10:45)
[2024-04-12] MEDS ORDERED: SUCCINYLCHOLINE IN 0.9% NACL 200 MG/10 ML SYRINGE ONE (10:45)
[2024-04-12] MEDS ORDERED: ondansetron HCL 4 MG/2 ML VIAL ONE (10:45)
[2024-04-12] MEDS ORDERED: propofoL 200 MG/20 ML VIAL ONE (10:45)
[2024-04-12] MEDS ORDERED: LIDOCAINE HCL 2% 5 ML SDV ONE (10:45)
[2024-04-12] MEDS ORDERED: fentaNYL citrate 50 MCG/ML SDV IV PRN (11:15)
[2024-04-12] MEDS ORDERED: PROCHLORPERAZINE EDISYLATE 10 MG/2 ML VIAL IV PRN (11:15)
[2024-04-12] MEDS ORDERED: ondansetron HCL 4 MG/2 ML VIAL IV PRN (11:15)
[2024-04-12] MEDS ORDERED: HYDROmorphone HCL 1 MG/ML SYR IV PRN (11:15)
[2024-04-12] MEDS ORDERED: NALOXONE HCL 0.4 MG SYR IV PRN (11:15)
[2024-04-12] MEDS ORDERED: IBLOOD GLUCOSE TEST STRIP 1 EA TEST VI PRN (11:15)
[2024-04-12] MEDS ORDERED: droPERidol 5 MG/2 ML VIAL IV PRN (11:15)
--- NOTE | 2024-04-12 11:48 | NUR ---
04/12/24 1148 Sheets,Bianca 1121 PT ARRIVED TO PACU WITH ORAL AIRWAY IN PLACE AND 6L VIA MASK. JAW THRUST/CHIN LIFT USED TO MAINTAIN AIRWAY. RESP EVEN AND UNLABORED. 1134 PT WOKE TO TACTILE STIMULI AND ORAL AIRWAY REMOVE. PT COUGHED AND SMALL AMOUNT OF RED/CLEAR SPUTUM NOTED, EDUCATION GIVEN. HOB INCREASED 1145 PT SIPPING WATER PER REQUEST, PT REPORTS 1-2/10 PAIN AND TOLERABLE AT THIS TIME.
[2024-04-12 11:55] VITALS: BP 122/75
[2024-04-12 12:50] VITALS: BP 126/73
[2024-04-12 13:02] VITALS: BP 131/90
--- NOTE | 2024-04-12 15:15 | NUR ---
1200: PATIENT BACK IN DAY SURGERY ROOM FROM PACU. RATES PAIN 3/10 IN THROAT AND LEFT NECK. DENIES NEED FOR PAIN MEDICATION AT THIS TIME. VS CHECKED. IV SITE WNL. PATIENT DENIES FEELING LIKE BIOPSY SITE IS CONTINUOUSLY BLEEDING. TOLERATING WATER, COFFEE, AND CHOCOLATE PUDDING. AT BEDSIDE. CALL LIGHT WITHIN REACH. 1225: PATIENT ASSISTED OOB AND TO GET DRESSED. GAIT STEADY. 1250: DISCHARGE INSTRUCTIONS GIVEN TO PATIENT AND . VS CHECKED. IV DC'D WNL. TIP INTACT. DRESSING APPLIED. 1255: PATIENT DISCHARGED TO HOME VIA WHEELCHAIR WITH .
--- NOTE | 2024-04-15 09:37 | PATH ---
[facility] [address] [place], [place] [address] Signed SPECIMEN(S): A LEFT PHARYNGEAL TUMOR SPECIMEN SOURCE: A. LEFT PHARYNGEAL TUMOR CLINICAL HISTORY: Left neck mass please do p16 testing FINAL PATHOLOGIC DIAGNOSIS: Designated "left pharyngeal tumor": - Squamous mucosa with lymphoid hyperplasia; negative for malignancy COMMENT: Correlation with clinical and procedural information is needed to ensure the targeted lesion was adequately sampled. BRP MICROSCOPIC EXAMINATION: Histologic sections of all submitted blocks are examined by light microscopy. These findings, together with the gross examination, support the pathologic diagnosis. GROSS DESCRIPTION: The specimen, labeled and designated "Home, " and designated on the requisition "left pharyngeal tumor," is received in formalin and consists of five fragments of pink-bee to red-brown soft tissue (0.3 to 0.5 cm in greatest dimension). The specimen is submitted entirely in cassette A1. AC (under the direct supervision of a pathologist) The Gross Description was prepared using a voice recognition system. The report was reviewed for accuracy; however, sound-alike word errors, addition and/or deletions may occur. If there is any question about this report, please contact Client Services. ADDITIONAL NOTES: Immunohistochemical and/or in situ hybridization studies if performed in this case included appropriate positive controls that reacted as expected. This test was developed and its performance characteristics determined by [facility]. It has not been cleared or approved by the U.S. Food and Drug Administration. The FDA has determined that such clearance or approval is not PATIENT NAME: MARCELLO HORN PATHOLOGY DATE OF : 68 REPORT #: [id number] PHYSICIAN: RODRIGUE SHORE PCP: KAREN MULLINS PA-C REPORT IS CONFIDENTIAL AND NOT TO BE RELEASED WITHOUT AUTHORIZATION [address] [address] Signed necessary. This test is used for clinical purposes. It should not be regarded as investigational or for research. [facility] is certified under the Clinical Laboratory Improvement Amendments of 1988 (CLIA) as qualified to perform high complexity clinical laboratory testing. PERFORMING LABORATORY: Technical component was performed by [facility], [address] [place] [address] (CLIA# [id number]). Professional interpretation was performed by [facility] - [address] [id number] Diagnostician: Pavan Hein MD Pathologist Electronically Signed 04/15/2024 Copies: ~ PATIENT NAME: MARCELLO HORN PATHOLOGY DATE OF : 68 REPORT #: [id number] PHYSICIAN: RODRIGUE SHORE PCP: KAREN MULLINS PA-C REPORT IS CONFIDENTIAL AND NOT TO BE RELEASED WITHOUT AUTHORIZATION
== END 2024-04-12 12:57 | disposition home or self-care (01) ==
LOC: OPS 09:02 → DS 09:02 → OPS 11:15
PROVIDERS: ATTEND Otolaryngology
PROC: 0CBM8ZX Excision of Pharynx, Via Natural or Artificial Opening Endoscopic, Diagnostic (ICD-10-PCS; principal; 2024-04-12 11:15)
DX: D49.0 Neoplasm of unspecified behavior of digestive system (principal); R22.1 Localized swelling, mass and lump, neck; J39.2 Other diseases of pharynx
CPT/HCPCS: 00320; J0330; J1100; J2001; J2405; J2704; J3010; J7121

== ENCOUNTER 2024-05-27 09:55 | Day surgery (SDC) | payer OTHER ==
[2024-05-25 09:30] VITALS: BP 134/97
[~2024-05-27] VITALS: Ht 175.3 cm; Wt 86.4 kg
[~2024-05-27 09:55] MED LIST changes: +CEFAZOLIN SODIUM 2 GM/20 ML SYR IV SCH; +MIDAZOLAM HCL 5 MG/5 ML VIAL IV PRN; +fentaNYL citrate 100 MCG/2 ML VIAL IV PRN
[2024-05-27 10:10] VITALS: BP 117/74
[2024-05-27] MEDS ORDERED: LIDOCAINE HCL 2% 5 ML SDV ONE (11:27)
[2024-05-27] MEDS ORDERED: fentaNYL citrate 100 MCG/2 ML VIAL ONE (11:27)
[2024-05-27] MEDS ORDERED: propofoL 200 MG/20 ML VIAL ONE ×2 (11:27→12:10)
--- NOTE | 2024-05-27 12:46 | NUR ---
05/27/24 Fidel6 Samantha Muhammad OXYGEN SATURATION REMAINS 97% ON 4L VIA NC. OXYGEN IS REDUCED TO 2L VIA NC.
[2024-05-27 13:01] VITALS: BP 105/75
--- NOTE | 2024-05-30 07:09 | OR ---
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 POSTOPERATIVE DIAGNOSES: 1. Squamous cell carcinoma of the oropharynx. 2. Small hiatal hernia (2-3 cm). PROCEDURE: Upper endoscopy with PEG tube placement. ESTIMATED BLOOD LOSS: None. INDICATIONS: Marcello is a 53-year-old gentleman who over the last couple of months was diagnosed with a squamous cell carcinoma in his oropharynx. It is now into his left neck. He has been evaluated by [facility]. He is not a surgical candidate. He has come back to [place], [place] to have his chemotherapy and radiation therapy. He was asked to see me expeditiously as a local general surgeon to have his PEG tube placed for nutritional support. 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 He comes with his to the office. He was able to talk and swallow his secretions quite well. His voice is only slightly muffled. I gave Marcello and his a brochure on upper endoscopy. I described to them the concept of a PEG tube. I wrote down PEG tube so they could look it up on the Internet. They understand he will need to be sedated for the procedure. Therefore, he will need some one to take him home afterwards. He should not work or operate machinery and so forth for 24 hours. let him use the PEG tube for 24 hours afterwards. He told me that he would not be using it for several weeks. He is going to eat and drink as long as he can with his upcoming treatments. He is headed to our chemotherapy infusion clinic in three days and they are going to instruct him on use of the PEG tube as well as have our rejoiner give him recommendations and that will be sent to our medical supply company. I reviewed with Marcello and his several times now the concept of a PEG tube. They understand there is risk including, but not limited to bleeding, infection, scarring, change in contour of the skin as well as detachment of the PEG tube requiring surgical replacement in any other unforeseen comorbidities. They had expressed understanding, wished to proceed. Electronically Signed By: SATURNINO BRAGA MD 05/30/24 0709 PATIENT NAME: MARCELLO HORN OPERATIVE REPORT DATE OF : 68 REPORT #: [id number] PHYSICIAN: SATURNINO BRAGA MD PCP: KAREN MULLINS PA-C REPORT IS CONFIDENTIAL AND NOT TO BE RELEASED WITHOUT AUTHORIZATION [facility] [address] [place], [place] [address] Signed PROCEDURE IN DETAIL: Marcello was taken into our endoscopy suite and placed in a supine semi-recumbent position. The posterior oropharynx was anesthetized with lidocaine spray. A bite block was utilized for the case. He was given monitored anesthesia care propofol infusion per our nurse oil field laborer. The adult gastroscope was introduced and advanced under direct visualization of camera without difficulty. His duodenum and pyloric channel were unremarkable. His entire stomach was unremarkable except for just a little bit of erythema in the base which is quite common. We were able to transilluminate the left upper quadrant just below the costal margin just lateral to the midline and his tattoo in the midline of his epigastric area. The area was prepped and draped in the usual sterile fashion. We injected some local anesthetic. We then made a small transverse incision with an 11 blade knife about 4 mm in diameter. The needle was passed under direct visualization to the abdominal wall and into the stomach. The wire was inserted through the needle into the stomach and captured with the snare. It was brought out through the oropharynx. We then placed the PEG tube over the wire down to the esophagus and out the abdominal wall and brought it up into place. It measured right at 4 cm at the abdominal wall. We passed our bolster over the PEG tube down to the 4 cm peter. We placed our locking valve over the PEG tube in the mid position. We then cut at the length. We then placed the valve on the end of the tube. After this, some triple antibiotic ointment was placed around the skin at the level of the PEG tube and a piece of gauze slit in the middle and placed underneath the bolster in good position. The adult gastroscope was introduced back down the esophagus into the stomach. We took multiple pictures for photodocumentation. There were no untoward complications or issues. The gas was then suctioned out and the gastroscope removed. We never did see an actual tumor in his posterior oropharynx. Marcello tolerated the procedure quite well. Saturnino Braga MD ALB/MODL /[id number] cc: Saturnino Braga MD [facility] Electronically Signed By: SATURNINO BRAGA MD 05/30/24 0709 PATIENT NAME: MARCELLO HORN OPERATIVE REPORT DATE OF : 68 REPORT #: [id number] PHYSICIAN: SATURNINO BRAGA MD PCP: KAREN MULLINS PA-C REPORT IS CONFIDENTIAL AND NOT TO BE RELEASED WITHOUT AUTHORIZATION [address], [place] [address] Signed MD Karen Dixon PA Copies: SATURNINO BRAGA MD, ROBERT C MD ~ Electronically Signed By: SATURNINO BRAGA MD 05/30/24 0709 PATIENT NAME: MARCELLO HORN OPERATIVE REPORT DATE OF : 68 REPORT #: [id number] PHYSICIAN: SATURNINO BRAGA MD PCP: KAREN MULLINS PA-C REPORT IS CONFIDENTIAL AND NOT TO BE RELEASED WITHOUT AUTHORIZATION
== END 2024-05-27 13:09 | disposition home or self-care (01) ==
LOC: DS 09:55
PROVIDERS: ATTEND Colon & Rectal Surgery
PROC: 0DH63UZ Insertion of Feeding Device into Stomach, Percutaneous Approach (ICD-10-PCS; principal; 2024-05-27 11:00)
DX: C10.9 Malignant neoplasm of oropharynx, unspecified (principal); K44.9 Diaphragmatic hernia without obstruction or gangrene
CPT/HCPCS: J0690; J2001; J2704; J3010

== ENCOUNTER 2024-06-24 18:11 | Emergency (ER) | payer OTHER ==
[~2024-06-24] VITALS: Ht 175.3 cm; Wt 80.6 kg
[~2024-06-24 18:11] MED LIST changes: -CEFAZOLIN SODIUM 2 GM/20 ML SYR IV SCH; -IBLOOD GLUCOSE TEST STRIP 1 EA TEST VI PRN; -LACTATED RINGER'S 1,000 ML IV SCH; -LIDOCAINE HCL 1% 5 ML SDV INJ ONE; -MIDAZOLAM HCL 5 MG/5 ML VIAL IV PRN; -fentaNYL citrate 100 MCG/2 ML VIAL IV PRN
[2024-06-24] MEDS ORDERED: LORAZEPAM1 MG PO (18:30)
[2024-06-24] MEDS ORDERED: ONDANSETRON ODT4 MG PO (18:30)
[2024-06-24] MEDS ORDERED: OLANZAPINE ODT10 MG PO (18:30)
[2024-06-24] MEDS ORDERED: HYDROCODON-ACE1 EAC8 PO (18:31)
[2024-06-24] MEDS ORDERED: SODIUM CHLORIDE 0.9% 1,000 ML IV PRN (18:45)
[2024-06-24] MEDS ORDERED: ondansetron HCL 4 MG/2 ML VIAL IV ONE ×2 (18:45→20:15)
[2024-06-24 19:01] LABS: HEMOGLOBIN 15.9 g/dL (12.0-18.0)
[2024-06-24 19:07] LABS: BASOPHILS 0.4 % (0-2); EOSINOPHILS 0.3 % (0-6); HEMATOCRIT 45.6 % (35.0-50.0); LYMPHOCYTES 6.4 % (24-44); MCH 30.5 (27-36); MCV 87.1 fl (81-99); MONOCYTES 9.4 % (0-12); NEUTROPHILS 83.5 % (39-80); PLATELET COUNT 241 K/uL (140-440); RBC 5.23 M/ul (4.3-5.7); RDW 12.8 (10.5-15.0)
[2024-06-24 19:17] LABS: ALBUMIN 4.4 g/dL (3.4-5.0); ALBUMIN/GLOBULIN RATIO 1.05 (1.1-2.4); ANION GAP 16.7 (7-21); BUN/CREATININE RATIO 17.69 (6.0-28.6); CALCIUM 10.2 mg/dL (8.5-10.1); CREATININE, SERUM 1.13 mg/dL (0.70-1.30); MAGNESIUM 2.1 mg/dL (1.8-2.4); POTASSIUM 3.7 mmol/L (3.5-5.1); PROTEIN, TOTAL 8.6 g/dL (6.4-8.2)
[2024-06-24] MEDS ORDERED: HYDROmorphone HCL 1 MG/ML SYR IV PRN (20:30)
[2024-06-24] MEDS ORDERED: SODIUM CHLORIDE 0.9% 1,000 ML IV SCH (20:30)
[2024-06-24] MEDS ORDERED: METOCLOPRAMIDE HCL 10 MG/2 ML SDV IV ONE (21:30)
[2024-06-24 21:43] LABS: BILIRUBIN, URINE NEGATIVE (negative); BLOOD/HGB, URINE NEGATIVE (Negative); KETONE, URINE >=80 (Negative); LEUK ESTERASE, URINE NEGATIVE (negative); NITRITE, URINE NEGATIVE (negative); PH, URINE 7.5 (5-7)
[2024-06-24 21:51] LABS: BACTERIA, URINE NONE SEEN /hpf (negative); CASTS, URINE NONE SEEN \\lpf; COLLECTION TYPE, URINE CLEAN CATCH; CRYSTALS, URINE NONE SEEN (0-1+); EPITHELIAL CELLS, URINE NONE SEEN /lpf (0-1+); REFLEX CULTURE, URINE No (No)
[2024-06-24] MEDS ORDERED: droPERidol 5 MG/2 ML VIAL IV ONE (22:15)
[2024-06-24] MEDS ORDERED: LORazepam 2 MG/ML VIAL IV ONE (22:15)
[2024-06-24] MEDS ORDERED: REGLAN10 MG PO (23:08)
[2024-06-24] MEDS ORDERED: PROMETHAZINE HCL 25 MG HOME.PACK PO ONE (23:15)
[2024-06-24] MEDS ORDERED: PROMETHAZINE HCL 25 MG SUPP. HOME.PACK PR ONE (23:15)
[2024-06-24 23:27] VITALS: BP 140/89
== END 2024-06-24 23:28 | disposition home or self-care (01) ==
LOC: ED 18:11
PROVIDERS: Emergency Medicine
DX: R11.2 Nausea with vomiting, unspecified (principal); C14.0 Malignant neoplasm of pharynx, unspecified; Z87.891 Personal history of nicotine dependence; Z79.899 Other long term (current) drug therapy
CPT/HCPCS: 36415; 74177; 80053; 81001; 83690; 83735; 85025; 96361; 96375; 96376; 99284-25; J1170; J1790; J2060; J2405; J2765; J7030; Q9967